=== PATIENT | female | born 1950 | race Caucasian/White ===

== ENCOUNTER → 2017-01-04 | Outpatient (CLI) | payer BC ==
[~2017-01-04] MED LIST: ASCO500T8 PO; BALANCE B PO; CEFD300C37 PO; ERTA1VIA IV; HYDR-3144 PO; HYDR1TAB12 PO; IBUP200C8 PO; IBUP200T64 PO; METR500T PO; MULT-464 PO; MULT-658 PO; Magnesium PO; Naltrexone PO; ONDA-39 PO; OXYC1TAB7 PO; Potassium PO; SULF1TAB24 PO; TONIC; VITA1TAB3 PO; [UNRECOGNIZED DRUG - REMARK]
== END | disposition home or self-care (01) ==
LOC: STAR 13:12
PROVIDERS: ATTEND Orthopaedic Surgery
DX: Z01.818 Encounter for other preprocedural examination (principal)
CPT/HCPCS: 81001; 87077; 87081; 87086; 87147; 87186; 93005

== ENCOUNTER → 2017-04-30 | Outpatient (CLI) | payer BC ==
[~2017-04-30] MED LIST changes: -HYDR-3144 PO; +HYDR-3245 PO; +MULT-516 PO; -ONDA-39 PO; +ONDA4TAB12 PO
[2017-04-30 11:54] LABS: HEMATOCRIT 33.3 % (34.6-47.8); HEMOGLOBIN 10.4 g/dL (11.7-16.4); WHITE BLOOD COUNT 8.8 x10^3/uL (3.4-10)
[2017-04-30 12:03] LABS: BLOOD UREA NITROGEN 18 mg/dL (7-18)
[2017-04-30 12:17] LABS: PATH.CAST-FLAG NOT PRESENT; SPERM-FLAG NOT PRESENT; SRC-FLAG NOT PRESENT; XTAL-FLAG NOT PRESENT; YLC-FLAG NOT PRESENT
== END | disposition home or self-care (01) ==
LOC: STAR 10:41
PROVIDERS: ATTEND Orthopaedic Surgery
DX: Z01.818 Encounter for other preprocedural examination (principal); M17.11 Unilateral primary osteoarthritis, right knee; R82.99 Other abnormal findings in urine
CPT/HCPCS: 36415; 80048; 81001; 85025; 87077; 87081; 87086; 87147; 87186; 93005

== ENCOUNTER 2017-05-09 10:02 | Inpatient (IN) | payer BC ==
[2017-04-30 11:06] VITALS: BP 111/73
[~2017-05-09] VITALS: Ht 170.2 cm; Wt 76.0 kg
[~2017-05-09 10:02] MED LIST changes: +EPINEPHRINE 1 MG/ML, 1ML ONE; +KETOROLAC 60 MG/2 ML ONE; +ROPIvacaine/PF 0.2%, 20 ML ONE; +SODIUM CHLORIDE 0.9% 50 ML ONE; +TRANEXAMIC ACID 100 MG/ML, 10ML ONE
[2017-05-09] MEDS ORDERED: FENTANYL PF 100 MCG/2ML ONE ×2 (10:38→16:04)
[2017-05-09] MEDS ORDERED: MIDAZOLAM 1 MG/ML, 2ML ONE (10:38)
[2017-05-09] MEDS ORDERED: CEFAZOLIN 1,000 MG ONE ×2 (10:40)
[2017-05-09] MEDS ORDERED: LACTATED RINGERS 1,000 ML IV SCH (10:50)
[2017-05-09] MEDS ORDERED: KETAMINE 10 MG/ML, 20ML ONE (11:00)
[2017-05-09] MEDS ORDERED: EPINEPHRINE 1 MG/ML, 1ML ONE (12:45)
[2017-05-09] MEDS ORDERED: cloniDINE/PF 100 MCG/ML, 10 ML ONE (12:45)
[2017-05-09] MEDS ORDERED: BUPIVACAINE/PF 0.25% ONE (12:45)
[2017-05-09] MEDS ORDERED: PROPOFOL 0 ML ONE (13:18)
[2017-05-09] MEDS ORDERED: hydrALAzine 20 MG/ML, 1ML IV PRN (14:00)
[2017-05-09] MEDS ORDERED: PROMETHAZINE 25 MG/ML, 1ML IV PRN (14:00)
[2017-05-09] MEDS ORDERED: MEPERIDINE/PF 25MG/0.5ML IVPush PRN (14:00)
[2017-05-09] MEDS ORDERED: FENTANYL PF 100 MCG/2ML IV PRN (14:00)
[2017-05-09] MEDS ORDERED: HYDROmorphone 1 MG/ML, 1ML IV PRN ×2 (14:00→16:00)
[2017-05-09] MEDS ORDERED: LABETALOL 5MG/ML, 20ML IV PRN (14:00)
[2017-05-09] MEDS ORDERED: ONDANSETRON 2MG/ML, 2ML IVPush PRN (14:00)
[2017-05-09] MEDS ORDERED: ACETAMINOPHEN 325 MG TABLET PO PRN (14:00)
[2017-05-09] MEDS ORDERED: OXYcodone 5 MG/5 ML ORAL.SOL UDC PO PRN (14:00)
[2017-05-09] MEDS ORDERED: LORazepam 2 MG/ML, 1ML IVPush PRN (14:00)
[2017-05-09] MEDS ORDERED: VANCOMYCIN 1,000 MG ONE (14:26)
[2017-05-09] MEDS ORDERED: DEXAMETHASONE 4 MG/ML, 1ML ONE (14:31)
[2017-05-09] MEDS ORDERED: PROPOFOL 50 ML ONE (14:31)
[2017-05-09] MEDS ORDERED: ONDANSETRON 2MG/ML, 2ML ONE (14:40)
[2017-05-09] MEDS ORDERED: HYDROmorphone 1 MG/ML, 1ML ONE (14:50)
[2017-05-09] MEDS ORDERED: TRANEXAMIC ACID 1,000 MG in SODIUM CHLORIDE 0.9% 100 ML IVPB ONE (15:50)
[2017-05-09] MEDS ORDERED: OXYcodone 5 MG/5 ML ORAL.SOL UDC ONE (15:51)
[2017-05-09] MEDS ORDERED: MEPERIDINE/PF 25MG/0.5ML ONE (15:51)
[2017-05-09] MEDS ORDERED: ZOLPIDEM 5MG TABLET PO PRN (16:00)
[2017-05-09] MEDS ORDERED: BISACODYL 10 MG SUPP PR PRN (16:00)
[2017-05-09] MEDS ORDERED: DIAZEPAM 5 MG TABLET PO PRN (16:00)
[2017-05-09] MEDS ORDERED: ONDANSETRON 4 MG TABLET PO PRN (16:00)
[2017-05-09] MEDS ORDERED: PROMETHAZINE 12.5 MG SUPP PR PRN (16:00)
[2017-05-09] MEDS ORDERED: MAGNESIUM HYDROXIDE 8%, 30ML UDC PO PRN (16:00)
[2017-05-09] MEDS ORDERED: SENNA/DOCUSATE TABLET PO PRN (16:00)
[2017-05-09] MEDS ORDERED: OXYcodone IR 5MG TABLET PO PRN (16:00)
[2017-05-09] MEDS ORDERED: ONDANSETRON 2MG/ML, 2ML IV PRN (16:00)
[2017-05-09] MEDS ORDERED: PROMETHAZINE 25 MG/ML, 1ML IM PRN (16:00)
[2017-05-09] MEDS ORDERED: ALUMINUM/MAG/SIMETHICONE 30 ML UDC PO PRN (16:00)
[2017-05-09] MEDS ORDERED: DIPHENHYDRAMINE 25 MG CAPSULE PO PRN (16:00)
[2017-05-09] MEDS ORDERED: LORazepam 1MG TABLET PO PRN (16:00)
[2017-05-09] MEDS: D5%-0.45% NACL 1,000 ML IV SCH (17:49)
[2017-05-09] MEDS: TAMSULOSIN 0.4 MG CAP.ER.24H PO SCH (18:22)
[2017-05-09] MEDS: ACETAMINOPHEN 500 MG TABLET PO SCH ×2 (18:22→23:59)
[2017-05-09] MEDS ORDERED: SODIUM CHLORIDE 0.9% 1,000ML IVBOLUS ONE (19:00)
[2017-05-09 19:54] VITALS: BP 84/46
[2017-05-09] MEDS: DOCUSATE 100 MG CAPSULE PO SCH (20:48)
[2017-05-09] MEDS: CEFAZOLIN PMX 1GM/50ML 50 ML IVPB SCH ×2 (23:02→23:59)
[2017-05-10 00:06] VITALS: BP 109/51
[2017-05-10 03:25] VITALS: BP 88/44
[2017-05-10 04:16] VITALS: BP 88/44
[2017-05-10] MEDS: D5%-0.45% NACL 1,000 ML IV SCH (05:32)
[2017-05-10] MEDS ORDERED: DEXAMETHASONE 4 MG/ML, 1ML IVPush SCH (06:00)
[2017-05-10] MEDS ORDERED: ASPIRIN 81 MG TABLET EC PO SCH (06:00)
[2017-05-10 06:19] LABS: BLOOD UREA NITROGEN 17 mg/dL (7-18)
[2017-05-10 06:38] VITALS: BP 87/50
[2017-05-10] MEDS: ACETAMINOPHEN 500 MG TABLET PO SCH (08:37)
[2017-05-10] MEDS: TAMSULOSIN 0.4 MG CAP.ER.24H PO SCH (08:37)
[2017-05-10] MEDS: DOCUSATE 100 MG CAPSULE PO SCH (08:37)
[2017-05-10] MEDS ORDERED: CEFAZOLIN PMX 1GM/50ML 50 ML IVPB SCH (13:00)
[2017-05-10 13:30] VITALS: BP 92/51
[2017-05-10] MEDS ORDERED: KETOROLAC 30 MG/1 ML IV SCH (16:00)
== END 2017-05-10 13:49 | disposition home or self-care (01) | DRG 470 ==
LOC: ORIP 10:02 → 4NOR 16:47
PROVIDERS: ADMIT Orthopaedic Surgery; ATTEND Orthopaedic Surgery
PROC: 0QBG0ZZ Excision of Right Tibia, Open Approach (ICD-10-PCS; 2017-05-09)
PROC: 0SRC0J9 Replacement of Right Knee Joint with Synthetic Substitute, Cemented, Open Approach (ICD-10-PCS; principal; 2017-05-09 12:45)
DX: M17.11 Unilateral primary osteoarthritis, right knee (principal); M06.9 Rheumatoid arthritis, unspecified; D64.9 Anemia, unspecified; K90.0 Celiac disease; M65.9 Synovitis and tenosynovitis, unspecified; M81.0 Age-related osteoporosis without current pathological fracture; Z60.2 Problems related to living alone; M85.661 Other cyst of bone, right lower leg; Z88.6 Allergy status to analgesic agent; Z88.1 Allergy status to other antibiotic agents; Z88.2 Allergy status to sulfonamides; Z88.8 Allergy status to other drugs, medicaments and biological substances
CPT/HCPCS: 36415; 80048; 82040; 85018; C1713; J0171; J0690; J1100; J1170; J1885; J2175; J2250; J2405; J2704; J2795; J3010; J3370; J3490; C1762; C1776; J0735; J7030; J7120

== ENCOUNTER 2017-05-10 20:13 | Emergency (ER) | payer BC ==
[~2017-05-10] VITALS: Ht 170.2 cm; Wt 70.0 kg
[~2017-05-10 20:13] MED LIST changes: -EPINEPHRINE 1 MG/ML, 1ML ONE; -KETOROLAC 60 MG/2 ML ONE; -ROPIvacaine/PF 0.2%, 20 ML ONE; -SODIUM CHLORIDE 0.9% 50 ML ONE; -TRANEXAMIC ACID 100 MG/ML, 10ML ONE
[2017-05-10 20:14] VITALS: BP 115/65
== END 2017-05-10 21:44 | disposition home or self-care (01) ==
LOC: ED 21:38
DX: R60.0 Localized edema (principal)
CPT/HCPCS: 99282